=== PATIENT | female | born 1965 | race Caucasian/White ===

== ENCOUNTER 2025-04-07 23:11 | Observation (INO) | payer OTHER, SELFPAY ==
[2025-04-07] VITALS (7 sets, daily range): BP systolic 158–195; BP diastolic 83–96; BMI 36.3
[2025-04-07 15:28] LABS: Hematocrit 33.1 % (37.0-47.0); Hemoglobin 11.0 g/dL (12.0-16.0); Mean Corp Hgb Conc. 33.2 g/dL (33.0-37.0); Mean Corpuscular Volume 85.3 fL (81.0-99.0); Nucleated Red Blood Cells % 0 %; Platelet Count 212 10^3/uL (130-400); Red Cell Dist. Width 13.9 % (11.5-14.5)
[2025-04-07 15:49] LABS: ALT (SGPT) 16 U/L (0-35); AST (SGOT) 17 U/L (14-36); Albumin 4.2 g/dl (3.5-5.0); Alkaline Phosphatase 63 U/L (38-126); Blood Urea Nitrogen 20 mg/dl (7-17); Calcium 10.2 mg/dl (8.4-10.2); Carbon Dioxide 24 mmol/L (22-30); Chloride 109 mmol/L (98-107); Glucose 87 mg/dl (70-99); Potassium 3.8 mmol/L (3.5-5.1); Sodium 140 mmol/L (135-145); Total Protein 6.8 g/dl (6.3-8.2); eGFR > 60.00
[2025-04-07 16:00] LABS: Troponin I 0.022 ng/ml
[2025-04-07 20:16] LABS: Iron 54 ug/dl (37-170)
[2025-04-07 20:25] LABS: Total Iron Binding Capacity 313 ug/dl (265-497)
[2025-04-07 20:50] LABS: Troponin I 0.024 ng/ml
[2025-04-07 21:03] LABS: Ferritin 37.6 ng/ml (11.1-264.0)
--- NOTE | 2025-04-07 22:10 | ED.GENMED ---
History of Present Illness
General
Chief Complaint: Cardiac Symptoms
Source: patient
Exam Limitations: none
Time Seen by Provider: 04/07/25 19:43
Nursing documentation reviewed up to this point in time: agreed with
History of Present Illness
History of Present Illness:
Patient presents to ED secondary to shortness of breath with exertion along with elevated blood pressure noted at home. Of note, 1 month ago, she was diagnosed with 'fluid around her heart', which was picked up incidentally during kidney stone
evaluation with CT scan. Subsequently, patient was evaluated by vp publisher development at [facility] and was started medication, which has not helped her symptoms. In fact, patient started to feel weak. After speaking with her vp publisher development, her
medication was reduced, which did not alleviate her symptoms. Denies nausea or vomiting. Denies fever or chills. Denies coughing. Denies back pain. Denies leg pain or swelling. Denies family history of blood clots. Denies recent travel or
surgery.
Review of Systems
Review of Systems
Allergies reviewed?: Yes
All Other Systems: ROS reviewed and negative except as documented in HPI and ROS
Constitutional: Reports no symptoms
EENT: Reports no symptoms
Respiratory: Reports trouble breathing
Cardiac: Reports no symptoms
ABD/GI: Reports no symptoms
Musculoskeletal: Reports no symptoms
Skin: Reports no symptoms
Neurological: Reports no symptoms
Phy Exam
Physical Exam
Physical Exam:
Physical Exam
General: mild distress, not acutely ill. afebrile
Head: nc/at. eomi
Neck: supple. normal range of motion.
Heart: s1/s2 regular rate and rhythm
Lungs: no acute respiratory distress. clear bilaterally
Abdomen: normal bowel sounds. not tender.
Neuro: alert and oriented x 3. no focal neurological deficits
Skin: no rash
Psychiatric: well kept. interactive and cooperative
Extremities: no edema. no calf tenderness.
Course
Orders/Labs/Results
Orders:
Orders
04/07/25 14:43
ECG [Electrocardiogram (*1)] Urgent
Reason for Study: Shortness of Breath
EKG- Treatment ONCE
04/07/25 15:00
Complete Blood Count/With Diff Urgent
Comprehensive Metabolic Panel Urgent
Ferritin Urgent
Comment: ADD ON
Iron Urgent
Comment: ADD ON
LDH Urgent
Comment: ADD ON
NT-proBNP Urgent
Total Iron Binding Urgent
Comment: ADD ON
Troponin I Urgent
04/07/25 19:43
Add On- LAB Urgent
Tests Added?: iron, ferritin, TIBC
04/07/25 20:10
Electrocardiogram (*1) Urgent
Reason for Study: Shortness of Breath
EKG- Treatment ONCE
04/07/25 20:20
Troponin I Urgent
04/07/25 20:29
CT Chest PE Study Urgent
Comment:
Reason For Exam: sob with hypoxia
04/07/25 22:55
Admit/Transfer Patient As Directed
Co-Sign Provider:
Level of Care: Observation services
Assign to:: Medical/Surgical
Physician / Group: susana, fei
Diagnosis: hypoxic resp insuff w/ambulation, lung nodules/lymphadenopathy conc malig
Code Status As Directed
Resuscitation Status: Full Code
04/07/25 22:57
PRN Pain Medication Management As Directed
May give lesser potent ordered pain med per pt: Yes
preference::
Protocol:: Medication orders for pain may be administered in a
manner that supports deferring to patient preference
when the pt is:
- Requesting an ordered lesser potent pain medication.
Least to most potent pain medications are defined
as: acetaminophen < NSAID < tramadol < opioids
(morphine, oxycodone, hydromorphone).
- Requesting a lesser dose of the same medication IF
ORDERED.
- Requesting a less intrusive route of administration
if both routes are prescribed by the provider (PO <
IV).
04/07/25 22:58
PULMONARY CONSULT Routine
Consulting Provider: Mundo Clay
Was physician already notified: No
Reason for consult: new lung nodules/lymphadenopathy conc malig, hypoxia
04/07/25 22:59
Consult Notification Routine
Specialty to Notify: Pulmonary
Date consulting provider notified: 04/08/25
Time consulting provider notified: 08:52
Notified:: Provider
Comment: [place] Texted Dr. Oliva
04/08/25 00:18
Activity As Directed
Activity Level: As Tolerated
Vital Signs As Directed
Frequency: Per unit guidelines
O2 Therapy [RESP] Routine
Nasal Cannula Liter Flow: 2 LPM
Titrate/Wean O2 to maintain O2 sat greater than (%): 92
Pulse Ox/spot Check [RESP] Routine
Quantity: 1
Pt Eval And Treat Routine
Activity Level: As Tolerated
DX Deep Vein Thrombosis Video Routine
04/08/25 06:00
Echo 2D MMode Color/Doppler IN AM
Reason for Study: pericaridal effusion
04/08/25 09:09
Cardiovascular Evaluation IN AM
Complete Blood Count/With Diff IN AM
Comprehensive Metabolic Panel IN AM
04/08/25 Dinner
Cholesterol Lowering
At Your Request: Full Participation
Does patient need a safe tray?: No
Cholesterol Lowering: Sodium, 2 Gram
04/08/25 18:00
Enoxaparin Sodium [Lovenox] 40 mg SC QPM
Abnormal Lab Results
04/07/25
15:00
WBC 4.2 L 10^3/uL
(4.8-10.8)
RBC 3.88 L 10^6/uL
(4.20-5.40)
Hgb 11.0 L g/dL
(12.0-16.0)
Hct 33.1 L %
(37.0-47.0)
MPV 10.5 H fL
(7.4-10.4)
Absolute Lymphs (auto) 0.8 L 10^3/uL
(1.2-3.4)
Lymphocytes % 18.0 L %
(20.5-51.1)
Chloride 109 H mmol/L
(98-107)
BUN 20 H mg/dl
(7-17)
% Saturation 17 L %
(20-50)
04/07/25 15:00
04/07/25 15:00
Vital Signs
Initial and Last Documented VS:
Initial Vital Signs
Temp Pulse Resp BP Pulse Ox
98.0 F 58 16 164/96 96
04/07/25 14:38 04/07/25 14:38 04/07/25 14:38 04/07/25 14:38 04/07/25 14:38
Last Documented Vital Signs
Temp Pulse Resp BP Pulse Ox
98.3 F 59 18 154/84 96
04/08/25 23:36 04/08/25 23:36 04/08/25 23:36 04/08/25 23:36 04/08/25 23:36
MDM/Problems Addressed
MDM/Problems Addressed:
During ambulation in ED, patient noted to become mildly dyspneic with desaturation with pulse ox 88% on room air. As such, with mildly elevated troponin, decision made to order CT PE study.
CTA PE report reviewed and discussed with patient. No evidence of PE, but noted to have small pericardial effusion, which may be contributing to patient's presenting symptoms. As such, patient will be admitted for further evaluation and treatment.
*Pulse Oximetry
SaO2: 96
Oxygen Mode of Delivery: Room air
Patient hypoxic: yes
*Critical Care Note
Total Time (30-74mins, 75-104mins- exclusive of procedures): Not Applicable
ED Attending Note
-
Portions of this chart may have been created with voice recognition software.� Occasional wrong word or��sound alike� substitutions may have occurred due to the inherent limitations of voice recognition software.
Discharge Plan
Departure
Patient Disposition: Admit
Date of Disposition: 04/07/25
Time of Disposition: 22:11
Admit to: Telemetry
Presentation/result/management discussed w/ accepting MD/DO: Hospitalist
Discharge Problem:
Dyspnea
Interventions
Interventions:
*Risk Screen - Suicide Last Done: 04/08/25 01:14
*General Assessment Last Done: 04/07/25 19:38
*Neglect/Abuse Screening Last Done: 04/07/25 19:38
*ED- Fall Risk Assessment Last Done: 04/07/25 19:38
*ED COVID-19 Vaccine History Last Done: 04/08/25 01:14
*Nursing Disposition Last Done: 04/08/25 00:20
ED- Cardiac Assessment Last Done: 04/07/25 19:38
ED- Pulmonary Assessment Last Done: 04/07/25 19:38
Discharge Date and Time
Discharge Date/Time: 04/08/25 00:20
--- NOTE | 2025-04-07 22:29 | W.PN.UPDATE ---
Update Note
Progress Note Update
This note serves as an addendum to the H&P by senior contract specialist Maddie Salazar
HPI
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
- MARY with desaturation 88% during ambulation.
CTA Chest:
- no PE but small pericardial effusion. Widespread mediastinal lymphadenopathy (most prominent subcarinal) as well as small bilateral hilar lymph nodes.
- Findings may be malignant. Cannot exclude inflammatory/infectious etiology
Relevant VS
Temp Pulse Resp BP Pulse Ox
98.0 F 47 16 187/92 96
04/07/25 14:38 04/07/25 21:30 04/07/25 21:30 04/07/25 21:23 04/07/25 22:13
PE
Gen: NAD , obese
HEENT: anictaic
Neck: suppe, no neck LAD
Lungs: CTA
Cor: RRR S1 S2
Abdomen:�soft , benign
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
MS: no edema
Psych: n mood and affect
Relevant Data
04/07/25
15:00
WBC 4.2 L
Hgb 11.0 L
Plt Count 212
Chloride 109 H
BUN 20 H
Creatinine 0.8
eGFR > 60.00
EKG
SINUS BRADYCARDIA WITH 1ST DEGREE A-V BLOCK
RIGHT BUNDLE BRANCH BLOCK
ABNORMAL ECG
WHEN COMPARED WITH ECG OF 07-Apr-2025 14:47,
NO SIGNIFICANT CHANGE WAS FOUND
CT Chest PE Study
- No evidence of central pulmonary embolism.
- Mild cardiomegaly and suspected small pericardial effusion.
- Widespread mediastinal lymphadenopathy (most prominent subcarinal) as well as small bilateral hilar lymph nodes. - - Findings may be malignant. Cannot exclude inflammatory/infectious etiology
- Several small bilateral lung nodules, predominantly lower lobe largest measuring approximately 0.4 cm, indeterminate.
- Overall prominence of the pulmonary interstitium which although may be inflammatory/infectious or interstitial edema, cannot exclude other etiology such as lymphangitic spread of tumor.
Minor nodular appearance of the soft tissues of both breasts. Has there been recent mammography?
NO PRIOR hospitalist admission:
ASSESSMENT & PLAN
Pending Rx reconciliation
Dyspnea with exertional hypoxia to 88%
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
Class II obesity
- Denied wt loss
- Former smoker
- NEG CT evidence of PE
- Widespread mediastinal LAD + small bilateral HLAD
- DDX: concern for malignancy > Infective or inflammatory vs occupational lung dz ?
- check LDH
- pro BNP
- ECHO in AM
- OP studies: sleep study and PFts
- Pul consult
DVT Px: LMWH
Full code
OBS MS
--- NOTE | 2025-04-07 22:31 | HPS.HSE ---
Family Physician
-
Family Physician: Sybil Lyles
Chief Complaint
-
Dyspnea on exertion
History of Present Illness
59-year-old female complaining of shortness of breath with activity. She is a former smoker total year 18 years half a pack a day stopped 1 month ago. She reports approximately 1 month ago she had a CT of her abdomen pelvis which showed a small
pericardial effusion she was sent to a inbound sales advisor at [facility] who wanted to do further testing however due to her hypertension at that time placed her on additional BP meds Nevibol 5 mg at bedtime. She reports since starting the medication
she has noticed she has felt more short of breath with activity. She denies any weight loss stage she might have gained weight however does not normally go to the doctors but every 6 to 8 months. She does report her pants and close feeling
tighter. She has family history father of lung cancer at age 82. Her last mammogram was 1 year ago only showing fibrocystic breast disease per patient
Past medical history hypertension, renal calculi/stones, smoker quit 03/09/2025, class II obesity.
Medical History
Past Medical History
Past Medical History: Reports Other
Additional Past Medical History:
hypertension
renal calculi/stones
smoker quit 02/2025
Class II obesity
Past Surgical History: Reports Other
Additional Past Surgical History:
Eye surgery
section
Social History
Tobacco: Former Smoker (Total 18-year half a pack a day quit February 2025)
Alcohol: None
Drug: None
Personal: Single
Living: With Family (Son lives with her)
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
Family History
Family History: Not pertinent
Allergies / Home Medications
Allergies reflects when Allergies were last updated in [employer].
Home Medications with original date entered in [employer]
Allergy/Medication List:
Allergies
Allergy/AdvReac Type Severity Reaction Status Date / Time
No Known Allergies Allergy Unverified 04/07/25 14:43
Home Medications
aspirin 81 mg tablet 81 mg PO HS Blood Clot Prevention/Tx 04/07/25
escitalopram oxalate 10 mg tablet 10 mg PO HS Depression 04/07/25
nebivolol 5 mg tablet 5 mg PO DAILY Blood Pressure 04/07/25
trazodone 100 mg tablet 100 mg PO HS Sleep 04/07/25
valsartan 320 mg tablet 320 mg PO DAILY Blood Pressure 04/07/25
Review of Systems
-
History Source: Patient
A 12 point ROS was completed and negative except as noted: Yes
Constitutional: Reports Weight Gain; Denies Fever, Weight Loss, Fatigue or Chills
EENT: Denies Sore Throat or Runny Nose
Respiratory: Reports Trouble Breathing (MARY); Denies Cough
Cardiac: Denies Chest Pain, Diaphoresis or Palpitations
Abdomen/GI: Denies Abdominal Pain, Nausea, Vomiting, Diarrhea, Constipated, Bloody Stools or Black Stools
: Denies Dysuria, Frequency, Flank Pain, Incontinence or Difficulty Voiding
Musculoskeletal: Denies Joint Pain or Edema
Skin: Denies Itching or Rash
Neurological: Denies Dizzy, Headache or Weakness
Endocrine: Reports No Symptoms
Hematologic/Lymphatic: Reports No Symptoms
Psych: Reports Calm
Physical Exam
Vital Signs
Vital Signs
Temp Pulse Resp BP Pulse Ox
98.0 F 47 16 187/92 96
04/07/25 14:38 04/07/25 21:30 04/07/25 21:30 04/07/25 21:23 04/07/25 22:13
Physical Exam
General: No Pain, Fever or Chills
HEENT: NormoCephalic, Anicteric, Moist mucous membranes, PERRLA, [place] Conjunctivae and No Ptosis
Respiratory: Rales (Coarse Rales right lower lung); No Wheezes or Rhonchi
Cardiac: S1/S2 and Regular Rhythm; No Murmur, Rub, Gallop or Peripheral Edema
Breast: Deferred by me
GI: Soft, Non Tender, Non Distended, Normal Bowel Sounds and No Hepatosplenomegaly
Rectal: Deferred by Provider
Genito-urinary: Deferred by me
Musculoskeletal: No Clubbing, No Cyanosis and No Edema
Skin: Warm and Dry; No Rash
Neuro: AO x 3, No Motor Deficits, Nonfocal/grossly intact, Cranial Nerves Intact and No Sensory Deficits; No Slurred Speech, Facial Droop, Tremors or Sedated
Psych: Calm
Laboratory Results
-
04/07/25 15:00
04/07/25 15:00
Laboratory Results
Total Bilirubin 0.9 mg/dl (0.2-1.3) 04/07/25 15:00
AST 17 U/L (14-36) 04/07/25 15:00
ALT 16 U/L (0-35) 04/07/25 15:00
Alkaline Phosphatase 63 U/L (38-126) 04/07/25 15:00
Troponin I 0.024 ng/ml 04/07/25 20:20
Data Reviewed
-
CT Scan: Report Reviewed by me
Lab Data: Labs Reviewed by me
Impression/Plan
-
Impression/plan:
Observation MedSurg
#Acute hypoxic respiratory insufficiency with ambulation unclear if secondary to underlying pulmonary disease versus malignancy given bilateral pulmonary nodules and widespread mediastinal lymphadenopathy
#Former smoker 18-year half a pack a day stopped February 2025
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
88% RA ambulation 96% room air
- Consult pulmonary
- Check BNP, LDH
CT PE study:
1. No evidence of central pulmonary embolism.
2.Mild cardiomegaly and suspected small pericardial effusion.
3. Widespread mediastinal lymphadenopathy (most prominent subcarinal) as well as small bilateral hilar lymph nodes. Findings may be malignant. Cannot exclude inflammatory/infectious etiology
4. Several small bilateral lung nodules, predominantly lower lobe largest measuring approximately 0.4 cm, indeterminate.
5. Overall prominence of the pulmonary interstitium which although may be inflammatory/infectious or interstitial edema, cannot exclude other etiology such as lymphangitic spread of tumor.
6. Minor nodular appearance of the soft tissues of both breasts. Has there been recent mammography?
#Small pericardial effusion
Persistent x 1 month did follow at [facility] cardiology but did not have test
-Check 2D echo
#Normocytic anemia
Hgb 11, MCV 85.3
#HTN�benign
BP 187/92
-Continue valsartan 320 mg daily, Nebivolol 5 mg at bedtime
#Anxiety
Continue Lexapro 10 mg at bedtime
#Insomnia
Continue trazodone 100 mg at bedtime
#Class II obesity
Affects all aspects of care weight loss recommended
DVT prophylaxis
Subcu Lovenox
Full code
[2025-04-08] VITALS: BP 172/92
[2025-04-08 00:02] LABS: LDH 194 U/L (120-246)
[2025-04-08 00:22] VITALS: BP 169/81; BMI 35.4
[2025-04-08] MEDS: DESYREL 100 MG PO ×2 (00:53→21:01)
[2025-04-08] MEDS: LEXAPRO 10 MG PO ×2 (00:53→21:01)
--- NOTE | 2025-04-08 01:27 | PTCARENOTE ---
Patient arrived to unit via stretcher. [id number]. Pleasant and cooperative with care. MARY. Able to walk self to into room. Denies pain or idscomofrt at current time. Oriented to plan of care and unit. Call cunningham with in reach.
[2025-04-08 07:50] VITALS: BP 168/77
[2025-04-08] MEDS: BYSTOLIC 5 MG PO (08:51)
[2025-04-08] MEDS: DIOVAN 320 MG PO (08:51)
[2025-04-08 09:40] LABS: Hematocrit 35.3 % (37.0-47.0); Hemoglobin 11.8 g/dL (12.0-16.0); Mean Corp Hgb Conc. 33.4 g/dL (33.0-37.0); Mean Corpuscular Volume 84.2 fL (81.0-99.0); Nucleated Red Blood Cells % 0 %; Platelet Count 207 10^3/uL (130-400); Red Cell Dist. Width 13.7 % (11.5-14.5)
[2025-04-08 10:06] LABS: ALT (SGPT) 16 U/L (0-35); AST (SGOT) 19 U/L (14-36); Albumin 4.5 g/dl (3.5-5.0); Alkaline Phosphatase 64 U/L (38-126); Blood Urea Nitrogen 13 mg/dl (7-17); Calcium 10.0 mg/dl (8.4-10.2); Carbon Dioxide 27 mmol/L (22-30); Chloride 109 mmol/L (98-107); Estimated Creatinine Clearance 88 ml/min; Glucose 93 mg/dl (70-99); HDL Cholesterol 27 mg/dl; LDL Cholesterol, Calculated 107 mg/dl; Potassium 4.2 mmol/L (3.5-5.1); Sodium 141 mmol/L (135-145); Total Protein 7.1 g/dl (6.3-8.2); Very Low Density Lipoprotein 27 mg/dl (0-30); eGFR > 60.00
[2025-04-08 10:27] VITALS: BP 154/76; PULSE 57; O2SAT 96
--- NOTE | 2025-04-08 10:33 | PTOTSP ---
Pt is independent with ambulation without need for any assistive devices. No skilled PT needs were identified. PT will sign off.
--- NOTE | 2025-04-08 10:40 | CON.PUL ---
Consultation
Consultation Request
Date/Time Consultation Requested: 04/08/2025-7:30 AM
Date/Time Consultation Performed: 04/08/2025-8 AM
Requesting Provider: Hospitalist
Performing Provider: Dr. Oliva
Reason for Consultation: Shortness of breath
Medical History
-
Chief Complaint: Shortness of breath
History of Present Illness:
59-year-old former smoking female with a history of hypertension, renal calculi, obesity who had CT abdomen and pelvis at outside hospital showing a small pericardial effusion and developed increasing shortness of breath with activity came to
[facility] and found to have significant mediastinal and subcarinal lymphadenopathy-pulmonary consulted for mediastinal/subcarinal lymphadenopathy 04/08/2025. The patient is a former smoker and developed some mild shortness of breath. She currently
does not complain of shortness of breath at rest and does not complain of chest congestion, productive cough, abdominal pain, nausea, leg swelling, or focal weakness. She does not complain of any wheezing.
Past Medical History
Past Medical History: None (Hypertension. Renal calculi. Former smoker. Obesity. Eye surgery. .)
Social History
Tobacco: Former Smoker (Smoked 17 to 24 years old and then quit, resumed 49 years old till 59 years of age-quit 1 month ago)
Alcohol: None
Drug: None
Personal: Single
Living: With Family
Occupational Exposures: No known asbestos exposure
Environmental Exposures: no known tuberculosis exposure
Family History
Family History: Reviewed & Not Pertinent
Allergies / Home Medications
Allergies
Allergy/AdvReac Type Severity Reaction Status Date / Time
No Known Allergies Allergy Unverified 04/07/25 14:43
Home Medications
�Medication �Instructions �Recorded �Confirmed �Last Taken �Type
aspirin 81 mg tablet 81 mg PO HS Blood Clot 04/07/25 04/07/25 Unknown History
Prevention/Tx
escitalopram oxalate 10 mg tablet 10 mg PO HS Depression 04/07/25 04/07/25 Unknown History
nebivolol 5 mg tablet 5 mg PO DAILY Blood Pressure 04/07/25 04/07/25 Unknown History
trazodone 100 mg tablet 100 mg PO HS Sleep 04/07/25 04/07/25 Unknown History
valsartan 320 mg tablet 320 mg PO DAILY Blood Pressure 04/07/25 04/07/25 Unknown History
Review of Systems
-
Unable to Obtain full review of systems at this time due to: Other ( per HPI)
Vitals / Labs / Diagnostic Testing
Vital Signs
Temp Pulse Resp BP Pulse Ox
97.6 F 56 17 168/77 96
04/08/25 07:50 04/08/25 08:51 04/08/25 07:50 04/08/25 08:51 04/08/25 07:50
Lab Data
04/08/25 09:09
04/08/25 09:09
Diagnostic Testing:
Physical Exam
-
Exam:
Well-nourished and well-developed in no apparent distress
HEENT-atraumatic, normocephalic
Neck-supple, no JVD, no bruit
Heart-regular rate and rhythm-no murmurs, rubs or gallops
Chest-clear to auscultation, no wheezes, crackles
Back-no tenderness
Abdomen-soft, nontender, nondistended, no hepatosplenomegaly
Extremities-no cyanosis, clubbing, edema and good peripheral pulses
Integument-intact, no rashes, lesions or ecchymosis
Neurology-alert and oriented, nonfocal motor and sensory exam
Assessment
-
59-year-old former smoking female with a history of hypertension, renal calculi, obesity who had CT abdomen and pelvis at outside hospital showing a small pericardial effusion and developed increasing shortness of breath with activity came to
[place] and found to have significant mediastinal and subcarinal lymphadenopathy-pulmonary consulted for mediastinal/subcarinal lymphadenopathy 04/08/2025.
Shortness of breath.
Mediastinal and subcarinal lymphadenopathy with multiple small bilateral pulmonary nodules-less than 4 mm
Leukopenia-WBC 3.4.
Mild normocytic anemia-hemoglobin 11.0
DONNIE suspected
Conditions present prior to admission:
Hypertension.
Renal calculi.
Former smoker.
Obesity.
Eye surgery. .
Plan
This patient with mild to moderate former smoking history, has some shortness of breath, possibly related to mild underlying lung disease, but no pulmonary emboli were noted-incidentally significant lymphadenopathy was noted.
Assess discharge. Supplemental oxygen needs prior to discharge.
Nebulizers if needed-currently not bronchospastic.
Significant lymphadenopathy is noted as described below.-Recommend biopsy-this can be done in the outpatient setting-I will have my office arrange follow-up with subsequent subcarinal lymph node and possible hilar lymph node biopsy-the pulmonary
nodules are too small for biopsy.
Alternatively outpatient PET scan could be performed, however, I suspect that lymphadenopathy will be PET scan positive-PET scan could help with finding abnormalities elsewhere in the body however, and thus suspect she will eventually need PET scan
as well.
I also suspect she has underlying obstructive sleep apnea-does not feel refreshed in the morning and has daytime somnolence with increased neck circumference and elevated BMI-35
DVT prophylaxis-on Lovenox
Outpatient pulmonary evaluation-needs PFTs, probable bronchoscopy-lymph node biopsy, and sleep study-. once again I will have my office arrange follow-up in the near future to arrange bronchoscopic biopsies and probable PET scan
Diagnostic data:
CT chest 04/07/25-no evidence for central pulmonary emboli, mild cardiomegaly and small pericardial effusion, widespread mediastinal lymphadenopathy-mostly subcarinal measuring up to 4 cm, several small bilateral lung nodules, predominantly lower
lobe measuring 4 mm and overall prominence of pulmonary station, minor nodular appearance soft tissue both breasts.
Echocardiogram 04/08/25, EF 57%, preserved RV systolic function with increased RV wall thickness, trace mitral regurgitation, PA systolic 35, trivial circumferential pericardial effusion
Data Reviewed
-
EKG: Report reviewed by me
Radiology: Report reviewed by me
CT Scan: Image personally visualized and interpreted and Report reviewed by me
Medical Tests (Nuc Med, Echo etc): Report reviewed by me
Labs: Labs reviewed by me
Old Records: Reviewed
Total Time Spent with Patient (in minutes): 65
[2025-04-08 10:47] LABS: Hepatitis C Antibody Negative (Negative)
[2025-04-08] MEDS: TYLENOL 650 MG PO (11:22)
--- NOTE | 2025-04-08 13:13 | CM ---
CM reviewed chart, patient seen bedside, initial assessment completed. Patient resides with her son in a two level home, bedroom on second floor, three steps to enter. Patient denies use of DME, denies VN/SNF hx. PCP Sybil Lyles, [facility]
[place], patient unsure if she has any prescription coverage. Patient denies insecurities at home. CM will continue to follow for all discharge planning needs.
Plan; home no needs anticipated
[2025-04-08 15:18] VITALS: BP 141/76
--- NOTE | 2025-04-08 15:44 | W.PN.HOSP.TC ---
Today's Communication/Plan
-
empiric dose of lasix
exertional o2 check in AM
f/u PFT report
Assessment / Plan
Assessment / Plan
CT PE study:
1. No evidence of central pulmonary embolism.
2.Mild cardiomegaly and suspected small pericardial effusion.
3. Widespread mediastinal lymphadenopathy (most prominent subcarinal) as well as small bilateral hilar lymph nodes. Findings may be malignant. Cannot exclude inflammatory/infectious etiology
4. Several small bilateral lung nodules, predominantly lower lobe largest measuring approximately 0.4 cm, indeterminate.
5. Overall prominence of the pulmonary interstitium which although may be inflammatory/infectious or interstitial edema, cannot exclude other etiology such as lymphangitic spread of tumor.
6. Minor nodular appearance of the soft tissues of both breasts. Has there been recent mammography?
TTE
1. Normal left ventricular size and systolic function with mild to moderate concentric left ventricular hypertrophy. Left ventricular ejection fraction 57% by Chandler's biplane method.
2. RV at the upper limits of normal with overall preserved RV systolic function with increased RV wall thickening.
3. Thickened mitral valve leaflets with trace mitral regurgitation.
4. Trileaflet, mildly sclerotic aortic valve without stenosis or regurgitation.
5. Mild tricuspid regurgitation; estimated pulmonary artery systolic pressure 35 mmHg assuming a right atrial pressure of 8 mmHg. IVC is dilated.
6. Trivial circumferential pericardial effusion without echocardiographic evidence of tamponade.
7. No prior study available for comparison.

#Acute hypoxic respiratory insufficiency -resolved
#Exertional dyspnea
-borderline hypoxic in ER
-BNP ~ 800 only, normal EF on TTE
-will try empiric IV lasix 20mg x1
-Pulmonology evaluation requested, PFT pending.
#Small pericardial effusion
-TTE showed trivial pericardial effusion.
# Pulmonary nodules
- Patient CT chest showing bilateral lung nodules. Diffuse lymphadenopathy.
- Have a history of occupational metal dust exposure. possible inflammatory reaction?
- Pulmonology to evaluate
#Normocytic anemia
#Hypertensive urgency
- BP down and controlled with current regimen of valsartan/nebivolol
#Generalized anxiety disorder
- Continue Lexapro 10 mg at bedtime
#Insomnia
- Continue trazodone 100 mg at bedtime
#Class II obesity
- Affects all aspects of care weight loss recommended
DVT prophylaxis - Subcu Lovenox
Full code
Total time spent : 55 mins
care plan discussed with pulmonology
Anticipated Discharge: Within 24 hours
Subjective/Interval History
-
Date of Service: April 08, 2025
Not on oxygen
continues to have dry cough
Denies any resting dyspnea
Objective Data
-
Labs:
Laboratory Results
04/08/25
09:09
WBC 3.4 L
Hgb 11.8 L
Hct 35.3 L
Plt Count 207
Sodium 141
Potassium 4.2
Chloride 109 H
Carbon Dioxide 27
BUN 13
Creatinine 0.7
Glucose 93
Calcium 10.0
Total Bilirubin 1.7 H
AST 19
ALT 16
Alkaline Phosphatase 64
Vital Signs:
Vital Signs
Temp Pulse Resp BP Pulse Ox
98.3 F 69 16 141/76 93
04/08/25 15:18 04/08/25 15:18 04/08/25 15:18 04/08/25 15:18 04/08/25 15:18
Review of Systems
-
Respiratory: Reports Cough; Denies Trouble Breathing
Cardiac: Reports No Symptoms
Abdomen/GI: Reports No Symptoms
Physical Exam
-
General: No Apparent Distress and Comfortable
HEENT: Negative Oxygen
Respiratory: Clear to Auscultation
Cardiac: Regular Rhythm and S1/S2; Negative Murmur or Rub
GI: Soft, Nontender, Nondistended and Normal Bowel Sounds
Musculoskeletal: No Edema
Neuro: Awake, Alert, Oriented, No Motor Deficits and Nonfocal/Grossly Intact
Psych: Calm
[2025-04-08] MEDS: LASIX 20 MG IV (17:15)
[2025-04-08] MEDS: LOVENOX 40 MG SC (17:16)
[2025-04-08 23:36] VITALS: BP 154/84
--- NOTE | 2025-04-09 02:43 | DOWNTIME ---
There was a [employer] Head Downtime on 04/09/2025 from 0100 to 04/09/2025 at 0235. Downtime documentation of patient's care, including medication administrations, has been reconciled in the electronic record per guidelines. Refer to the
patient's paper chart under the miscellaneous tab to see printed paper medication records and downtime forms.
[2025-04-09 07:52] VITALS: BP 162/87
[2025-04-09] MEDS: DIOVAN 320 MG PO (08:22)
[2025-04-09] MEDS: BYSTOLIC 5 MG PO (08:22)
--- NOTE | 2025-04-09 10:26 | W.PN.PUL.V3 ---
Today's Communication / Plan
-
.
Increase activity.
Assess discharge supplemental oxygen needs.
Outpatient pulmonary vibration-bronchoscopy/biopsy/PET scan
Assessment
-
59-year-old former smoking female with a history of hypertension, renal calculi, obesity who had CT abdomen and pelvis at outside hospital showing a small pericardial effusion and developed increasing shortness of breath with activity came to
[facility] and found to have significant mediastinal and subcarinal lymphadenopathy-pulmonary consulted for mediastinal/subcarinal lymphadenopathy 04/08/2025.
Shortness of breath.
Mediastinal and subcarinal lymphadenopathy with multiple small bilateral pulmonary nodules-less than 4 mm
Leukopenia-WBC 3.4.
Mild normocytic anemia-hemoglobin 11.0
DONNIE suspected
Conditions present prior to admission:
Hypertension.
Renal calculi.
Former smoker.
Obesity.
Eye surgery. .
Plan
This patient with mild to moderate former smoking history, has some shortness of breath, possibly related to mild underlying lung disease, but no pulmonary emboli were noted-incidentally significant lymphadenopathy was noted.
.
Supplemental oxygen as needed
Assess discharge supplemental oxygen needs prior to discharge.
Nebulizers if needed-currently not bronchospastic..
Bedside spirometry 04/08/25-FEV1 1.28 L-55%, FVC 1.76 L- 60%, 18% improvement postbronchodilator
Significant lymphadenopathy is noted as described below.-Recommend biopsy-this can be done in the outpatient setting-I will have my office arrange follow-up with subsequent subcarinal lymph node and possible hilar lymph node biopsy-the pulmonary
nodules are too small for biopsy.
Alternatively outpatient PET scan could be performed, however, I suspect that lymphadenopathy will be PET scan positive-PET scan could help with finding abnormalities elsewhere in the body however, and thus suspect she will eventually need PET scan
as well.
I also suspect she has underlying obstructive sleep apnea-does not feel refreshed in the morning and has daytime somnolence with increased neck circumference and elevated BMI-35
DVT prophylaxis-on Lovenox
Outpatient pulmonary evaluation-needs PFTs, probable bronchoscopy-lymph node biopsy, and sleep study-. once again I will have my office arrange follow-up in the near future to arrange bronchoscopic biopsies and probable PET scan
Diagnostic data:
CT chest 04/07/25-no evidence for central pulmonary emboli, mild cardiomegaly and small pericardial effusion, widespread mediastinal lymphadenopathy-mostly subcarinal measuring up to 4 cm, several small bilateral lung nodules, predominantly lower
lobe measuring 4 mm and overall prominence of pulmonary station, minor nodular appearance soft tissue both breasts.
Echocardiogram 04/08/25, EF 57%, preserved RV systolic function with increased RV wall thickness, trace mitral regurgitation, PA systolic 35, trivial circumferential pericardial effusion
Subjective Data
-
Date of Service:
Date of Service: April 09, 2025
Chief Complaint: Pulmonary Follow Up and Dyspnea Follow Up
Subjective:
No Complaints of shortness of breath at rest, no chest pain, pleurisy, chest congestion, abdominal pain or
Review of Systems
General: Other (Per HPI)
Objective Data
Data Reviewed
Vital Signs / I&O:
Vital Signs
Temp Pulse Resp BP Pulse Ox
98.0 F 54 16 162/87 95
04/09/25 07:52 04/09/25 07:52 04/09/25 07:52 04/09/25 07:52 04/09/25 08:45
Intake and Output
04/08/25 04/09/25 04/10/25
06:59 06:59 06:59
Intake Total 900 / 900
Balance 900 / 900
SaO2: 95
Physical Exam
General: Respiratory Distress (n) and Comfortable
HEENT: Normocephalic, Anicteric and Moist Mucous Membranes
Cardiovascular: Regular Rhythm
Respiratory: Wheeze (n), Crackles (n), Rhonchi (n), Non-Labored Respirations, Accessory Resp Muscle Use (n) and Stridor (n)
GI: Soft, Non Distended and Non Tender
Neurology: Awake, Alert and No Motor Deficits
Skin: Warm, Good Color, Cyanosis (n), Jaundice (n) and Rash (n)
Labs/Micro/Reports
Lab Data
04/08/25 09:09
04/08/25 09:09
--- NOTE | 2025-04-09 10:59 | CM ---
CM reviewed chart, reviewed with Nurse, patient seen bedside. Patient denies needs at this time. Plan remains home no needs. CM will continue to follow for all discharge planning needs.
Plan; home no needs anticipated
--- NOTE | 2025-04-09 12:10 | PTCARENOTE ---
Pt ambulated around the hallways twice on RA. Pt's POX at rest 95%, while ambulating dipped as low as 90% and recovered to 94%. Dr Reji maher.
[2025-04-09 12:17] VITALS: BP 153/71
--- NOTE | 2025-04-10 16:30 | W.DCSUMMARY ---
Discharge Summary
Discharge Data
Date of Admission: 04/07/25
Date of Discharge: 04/09/25
-
Pending Results: No
Hospital Course
Discharging Physician : Dr Jose Antonio Mendoza
Disposition : To home
Primary care physician : Dr Sybil Lyles
Principal Discharge diagnosis :
Exertional dyspnea
Bilateral subcentimeter pulmonary nodules and significant pulmonary lymphadenopathy
Suspected inflammatory pulmonary parenchymal changes
Chronic Discharge diagnosis :
Essential hypertension
History of nephrolithiasis
Former smoker
Obesity
History of section
History of eye surgery
Hospital Course :
Patient is a 59-year-old female with above-mentioned past medical history came to ER for having new onset of exertional dyspnea. Patient was noted to be borderline hypoxic as well. Patient had a CT chest PE study in ER which ruled out any
pulmonary embolism although did show mediastinal lymphadenopathy bilateral subcentimeter pulmonary nodules. There was pulmonary interstitial changes of inflammatory nature. proBNP was minimally elevated, a follow-up echocardiogram ruled out any
heart failure. Pulmonology was involved in care who evaluated patient and patient underwent PFT, which showed FEV1 of 1.28 L or 55%, FVC of 1.76 L 60% of predicted. Patient was provided empiric IV diuretics and had improvement in symptoms
minimally. Patient ambulatory oxygen levels were checked and were within normal limit. Pulmonology recommended for patient to follow-up in the office with further continuation of workup. Patient was discharged to home at this point.
Important imaging findings :
None
Procedure findings :
None
Discharge Plan
-
Patient Disposition: Home (Routine Discharge)
Discharge Diagnosis/Procedures: Bilateral pulmonary nodules, Exertional dyspnea
Condition: Fair
Diet: Regular
Activity: As tolerated
Driving Restrictions: As prior to admission
Bathing Restrictions: OK to Shower
Activity Restrictions/Additional Instructions:
Please get Pulse oximeter and monitor blood oxygen level at home when you have shortness of breath
If your blood oxygen remains persistently below 90%, please call ambulance to come back to ER for further evaluation
Referrals:
Mundo Clay MD [Active, Pulmonary Medicine] - in one to two weeks
Sybil Lyles CRNP [Family Provider, General] - in one week
Prescriptions:
Continued
trazodone 100 mg Tablet
100 mg PO HS
valsartan 320 mg Tablet
320 mg PO DAILY
aspirin 81 mg Tablet
81 mg PO HS
escitalopram oxalate 10 mg Tablet
10 mg PO HS
nebivolol 5 mg Tablet
5 mg PO DAILY
Discharge Orders:
Discharge Patient (As Directed); Ordered 04/09/25
Ordered By: Jose Antonio Mendoza
Discharge Date and Time
Discharge Date/Time: 04/09/25 12:31
Print Language: [id number]
== END 2025-04-09 12:31 | disposition home or self-care (01) ==
LOC: 4 WEST ACU 23:11
PROVIDERS: Clinical Nurse Specialist Family Health; Emergency Medicine; ADMITTING PHYSICIAN Internal Medicine; ATTENDING PHYSICIAN Hospitalist; EMERGENCY PHYSICIAN Emergency Medicine; FAMILY PHYSICIAN Nurse Practitioner; OTHER PHYSICIAN Internal Medicine Critical Care Medicine
DX: R06.09 Other forms of dyspnea (principal); I16.0 Hypertensive urgency; R09.02 Hypoxemia; I31.39 Other pericardial effusion (noninflammatory); D64.9 Anemia, unspecified; E66.812 Obesity, class 2; F41.1 Generalized anxiety disorder; I10 Essential (primary) hypertension; R59.0 Localized enlarged lymph nodes; N20.0 Calculus of kidney; R06.02 Shortness of breath; R91.8 Other nonspecific abnormal finding of lung field; G47.00 Insomnia, unspecified; Z79.899 Other long term (current) drug therapy; Z87.891 Personal history of nicotine dependence; Z87.442 Personal history of urinary calculi; D72.819 Decreased white blood cell count, unspecified
CPT/HCPCS: 71275; 80053; 80061; 82728; 83540; 83550; 83615; 83880; 84484; 85025; 86803; 93005; 93306; 94060; 94640; 97162; 99285; G0378; Q9967

== ENCOUNTER 2025-05-05 06:07 | Day surgery (SDC) | payer OTHER, SELFPAY ==
[2025-05-05] VITALS (8 sets, daily range): BP systolic 114–160; BP diastolic 73–91; BMI 35.2
== END 2025-05-05 17:35 | disposition home or self-care (01) ==
LOC: GI 06:07
PROVIDERS: ATTENDING PHYSICIAN Internal Medicine Critical Care Medicine
DX: I88.8 Other nonspecific lymphadenitis (principal)
CPT/HCPCS: 31629; 31645; 31654; 88173; 88305; 88312

== ENCOUNTER → 2025-07-14 14:00 | Outpatient (REF) | payer OTHER, SELFPAY | LOC: DHSLP 14:00 | PROVIDERS: ATTENDING PHYSICIAN Internal Medicine Critical Care Medicine; FAMILY PHYSICIAN Nurse Practitioner | DX: G47.33 Obstructive sleep apnea (adult) (pediatric) (principal) | CPT/HCPCS: 95800 ==